=== PATIENT | female | born 1970 | race Caucasian/White ===

== ENCOUNTER 2024-10-10 00:13 | Emergency (ER) | payer MEDICAID, SELFPAY ==
--- NOTE | ~2024-10-10 | XR_ITS ---
EXAMINATION: XR CHEST CLINICAL INFORMATION: Persistent cough COMPARISON: None available. TECHNIQUE: 2 views of the chest were obtained. FINDINGS: Normal appearance of the cardiomediastinal structures. No effusions or pneumothoraces. No focal pulmonary consolidation. Normal pattern of pulmonary vasculature. Partial visualization of abdominal mesh graft suture anchors within the right abdominal quadrants. XR/XR chest 2V IMPRESSION: No cardiopulmonary abnormalities identified. Lungs clear. Partial visualization of abdominal mesh graft suture anchors within the right abdominal quadrants. Electronically signed by: Primo Jackson MD 10/10/2024 01:54 AM LYRIC GARAY
[2024-10-10 00:31] VITALS: BP 120/67; PULSE 75; RESP 20; TEMP 36.4; O2SAT 97; BMI 50.5
[2024-10-10 01:24] LABS: Influenza A PCR NEGATIVE (Negative); Influenza B PCR NEGATIVE (Negative); Resp Syncy Virus RNA Qual PCR NEGATIVE (Negative); SARS COV2 PCR INHOUSE NEGATIVE (Negative)
[2024-10-10 02:50] VITALS: BP 147/92; PULSE 80; RESP 16; TEMP 36.3; O2SAT 99
--- NOTE | 2024-10-10 03:38 | ED_ITS ---
HPI - URI/Sore Throat General Chief Complaint: Upper Respiratory Symptoms Stated Complaint: cough Time Seen by Provider: 10/10/24 03:37 Source: patient and EMS Mode of arrival: EMS Limitations: no limitations History of Present Illness ED Provider: Dr. Arianne Riddle HPI Narrative: Patient comes to the emergency room via ambulance. Initially, patient came in because she was found with her being in the street. Patient admits to polysubstance abuse. Patient denies SI or HI. Patient checked in complaining of cough and runny nose for 5 days. Related Data Allergies Allergy/AdvReac Type Severity Reaction Status Date / Time ibuprofen [From MOTRIN] Allergy Unknown FACIAL Verified 10/10/24 00:31 SWELLING Review of Systems Review of Systems: Constitutional : No Weight loss, No Fever, No Chills, No Night Sweats, No Fatigu e, No Malaise ENT/Mouth : Complaining of congestion, runny nose, no sore throat, no ear pain Eyes: No Eye Pain, No Swelling, No Redness, No Foreign Body, No Discharge, No Vision Changes Cardiovascular : No Chest Pain, No SOB, No Dyspnea on Exertion, No Orthopnea, No Edema, No Palpitations Respiratory : Complaining of cough for 5 days, No Sputum, No Wheezing, No Smoke Exposure, No Dyspnea Gastrointestinal : No Nausea, No Vomiting, No Diarrhea, No Constipation, No abdominal Pain, No Hematochezia, No Melena Genitourinary : no irregular bleeding, No Dysuria, No Urinary Frequency, No Hematuria, No Urinary Incontinence, No Urgency, No Flank Pain, No Urinary Flow Changes, No Hesitancy Musculoskeletal : No joint pain, No Myalgias, No Joint Swelling Skin : No Skin Lesions, No rash Neuro : No Weakness, No Numbness, No Paresthesias, No Loss of Consciousness, No Dizziness, No Headache Psych : No Anxiety/Panic, No Depression, No SI/HI/AH/VH, No Social Issues, Heme/Lymph: No Bruising, No Bleeding,No Lymphadenopathy Endocrine : No Polyuria, No Polydipsia, No Temperature Intolerance PMFSH Social History Social History Advance Directives: No Advance Directives Information Provided: No Do you have a plan to hurt others: No Plan Physical Exam Vital Signs: Vital Signs: Last Vital Signs Temp 97.4 F 10/10/24 02:50 Pulse 80 10/10/24 02:50 Resp 16 10/10/24 02:50 BP 147/92 H 10/10/24 02:50 Pulse Ox 99 10/10/24 02:50 O2 Del Method Room Air 10/10/24 02:50 BMI result Body Mass Index 50.5 Const: Other: Appearance: Alert. Oriented X3. No acute distress. Eyes: Pupils equal, round and reactive to light. ENT: Pharynx normal. Neck: Normal inspection. Neck supple. No lymph nodes noted. No crepitus CVS: Normal heart rate and rhythm. Pulses normal. Normal S1 and S2 Respiratory: No respiratory distress. Breath sounds normal. No Wheezing. No rales Abdomen: Soft and nontender. No rigidity. No distention. Skin: Skin warm and dry. Normal skin color. Normal skin turgor. Extremities: No lower extremity edema. No Lacerations. No Rash Neuro: Oriented X 3. No motor deficit. No sensory deficit. Moving all extremities. No slurred speech. CN 2 through 12 grossly intact Psych: calm, cooperative, normal affect Medical Decision Making Medical Decision Making MDM Narrative: My interpretation of labs: Serology negative for RSV COVID and flu -chest x-ray negative for infiltrate -patient awake, alert, clinically sober, patient ambulating by herself. -vitals are stable -patient's was here, they seem to have had a discussion in the hallway in the ED. -at this time, patient states that she feels well, admits that she drank alcohol. Patient has a normal steady gait but seems to be still under the influence. Patient able to answer questions. Discussed with the patient that it would be best until she feels a bit better. When ready, patient may be discharged -patient reassessed for SI HI, denies both Lab Data [facility] Lab Attestation statement: I reviewed the patient's lab results. Labs: Lab Results 10/10/24 Range/Units 00:39 Influenza Type A (PCR) NEGATIVE (Negative) Influenza Type B (PCR) NEGATIVE (Negative) RSV RNA Qual (PCR) NEGATIVE (Negative) SARS-CoV-2 RNA (RT-PCR) NEGATIVE (Negative) Discharge Plan Discharge Clinical Impression: Upper respiratory infection Patient Disposition: Home, Self-Care Instructions: Upper Respiratory Infection (ED) Additional Instructions: Please follow-up with your primary care physician tomorrow. If you have any worsening or new symptoms, please return to the emergency room or call 911 Print Language: Citizen Of [place]
[2024-10-10 04:05] VITALS: BP 147/92; PULSE 80; RESP 16; TEMP 36.3; O2SAT 99
== END 2024-10-10 04:10 | disposition home or self-care (01) ==
PROVIDERS: Emergency Provider Emergency Medicine
DX: J06.9 Acute upper respiratory infection, unspecified (principal); R05.9 Cough, unspecified; R09.89 Other specified symptoms and signs involving the circulatory and respiratory systems; Z03.818 Encounter for observation for suspected exposure to other biological agents ruled out
CPT/HCPCS: 0241U; 71046; 99283

== ENCOUNTER 2024-12-16 13:03 | Emergency (ER) | payer MEDICAID, SELFPAY ==
--- NOTE | ~2024-12-16 | CT_ITS ---
CLINICAL HISTORY: abdominal pain. diarrhea CT abdomen and pelvis with contrast Comparison: CT - CT ABDOMEN PELVIS W IV CON - 12/16/24 20:24 EST Findings: No consolidation or effusion. The gallbladder and solid organs are within normal limits. No renal stones. No bowel obstruction, pneumoperitoneum, or pneumatosis. Pelvic contents unremarkable. Normal appendix. No acute fracture. IMPRESSION: No acute findings. This document has been electronically signed by: Jeffry Hines MD on 12/16/2024 21:32:19
--- NOTE | 2024-12-16 13:53 | ED.GENADULT ---
HPI - General Adult General Chief complaint: Abdominal Pain Stated complaint: vomiting abd pain Time Seen by Provider: 12/16/24 18:44 Source: patient Mode of arrival: ambulatory Limitations: no limitations History of Present Illness ED Provider: Aren Ramsay PA-C HPI narrative: 54 yold female with no pmh presents to the ED for abdominal pain and mutliple rounds of diarrhea that began today. patient states so much diarrhea she had to change her clothes due to having bowel movements on her clothes. Patient denies any coughing, chest pain, shortness of breath, back pain, recent long travel, recent surgery, or any new antibiotic use. Related Data Allergies Allergy/AdvReac Type Severity Reaction Status Date / Time ibuprofen [From MOTRIN] Allergy Unknown FACIAL Verified 12/16/24 13:55 SWELLING Review of Systems Review of Systems: abdominal pain and diarrhea Yes all other systems are reviewed and are negative Physical Exam ED Vital Signs: Vital Signs - 24 hr 12/16/24 13:54 12/16/24 19:30 12/16/24 19:55 Temperature 97.6 F 98.6 F Pulse Rate 103 H 97 98 Respiratory Rate 18 16 16 Blood Pressure 139/88 123/97 H 125/95 H Pulse Oximetry 99 97 97 Oxygen Delivery Method Room Air Room Air Room Air 12/16/24 22:06 12/16/24 23:32 Temperature 96.9 F 96.9 F Pulse Rate 89 89 Respiratory Rate 16 16 Blood Pressure 110/64 110/64 Pulse Oximetry 96 96 Oxygen Delivery Method Room Air Room Air BMI result Body Mass Index 31.2 Const General: cooperative, healthy appearing, comfortable, no acute distress, well developed, alert, awake and Physically active Orientation/consciousness: patient oriented x3 HENMT Head: Yes normal to inspection, Yes No palpable skull fracture present, Yes normocephalic and Yes atraumatic Ears: hearing grossly normal bilaterally, external ears normal, TM's normal bilaterally, TM normal on the right, TM normal on the left, EAC's normal, mastoids normal and no periauricular adenopathy Eyes General: appearance normal, both eyes and all related structures Neck Neck: Yes normal visual inspection, Yes full ROM, Yes no lymphadenopathy, Yes no meningeal signs, Yes trachea midline, Yes supple, No anterior neck swelling and No tender Chest Chest palpation & inspection: normal inspection of the chest and normal palpation of entire chest wall Resp Effort & Inspection: normal respiratory effort and able to speak in complete sentences Auscultation: clear to auscultation bilaterally Cardio Jugular venous distension: no JVD Heart sounds: S1 normal heart sound present and S2 normal heart sound present GI Inspection: Yes normal to inspection Palpation (GI): Soft to palpation, not firm, Tenderness to palpation present (GI) in the LLQ and in the RLQ, no guarding and not rigid General: Yes no CVA tenderness Back/Spine/Pelvis Back: no CVA tenderness and No back tenderness Skin General skin exam: no rashes or lesions noted, elasticity normal and turgor normal Neuro General: patient oriented x3, gait normal, tone normal, moves all extremities, Normal light touch and pain sensation, no meningeal signs, no focal motor deficits, CN's II-XI intact bilaterally and normal sensation to monofilament Extrem General: Yes normal to inspection, Yes full ROM and Yes capillary refill normal Psych Appearance: grossly normal, well kempt and not disheveled Course Course Course Narrative: RME, this is a rapid medical exam performed by Ethan Shane please refer to primary provider for complete H&P- 54-year-old female presents for evaluation of abdominal pain, vomiting and diarrhea. Symptoms started this morning. She has also been sneezing. Plan for labs, viral swabs. Denies any recent antibiotic use or travel outside of the country Medications Administered Discontinued Medications Generic Name Dose Route Start Last Admin Trade Name Freq PRN Reason Stop Dose Admin Famotidine 20 mg 12/16/24 20:41 12/16/24 21:03 Famotidine/Pf 20 Mg/2 Ml Vial IVPUSH 12/16/24 20:42 20 mg ONCE ONE Administration Sodium Chloride 1,000 mls @ 999 mls/hr 12/16/24 20:27 12/16/24 22:10 Ns IV 12/16/24 21:27 Infused .Q1H1M STA Infusion Iohexol 100 ml 12/16/24 20:30 12/16/24 20:31 Iohexol 350 Mg/Ml 100 Ml Infus..Btl IV 12/16/24 20:31 85 ml ONCE ONE Administration Ondansetron HCl 4 mg 12/16/24 20:41 12/16/24 21:03 Ondansetron Hcl 4 Mg/2 Ml Vial IVPUSH 12/16/24 20:42 4 mg ONCE ONE Administration Medical Decision Making Medical Decision Making [facility] Narrative: Patient presents to ED with abdominal pain profuse diarrhea. Was sent for abdominal CT scan, stool sample C diff ordered 11:24pm: Patient de CT scan came back normal. After multiple attempts patient was not able to give stool sample. Patient also not able to give urine sample. Patient would like to be discharged with follow-up with primary care provider for outpatient stool sample UA analysis. Patient explained worrisome signs and informed to return to the ED immediately. Not suspecting sepsis, bowel perforation, small-bowel obstruction, dehydration, electrolyte deficiency, urosepsis, MS, CHF, pneumonia, or any other life-threatening etiology Differential Diagnosis Differential Diagnoses: The differential diagnosis associated with the presentation includes (Gastroenteritis, colitis, neuro) Admission/Observation Consideration of admission/observation: Escalation of care including admission/observation considered Lab Data [facility] Lab Attestation statement: I reviewed the patient's lab results. 12/16/24 14:29 12/16/24 14:29 Labs: Lab Results 12/16/24 Range/Units 14:29 WBC 13.2 H (4.8-10.8) X10*3/uL RBC 5.45 (4.20-5.50) X10*6/uL Hgb 15.1 (12.0-16.0) g/dl Hct 47.7 H (37.0-47.0) % MCV 87.5 (80.0-98.0) fL MCH 27.7 (27.0-33.0) pg MCHC 31.7 (31.0-35.0) g/dl RDW 14.1 (11.0-16.0) % Plt Count 228 (160-400) X10*3/uL MPV 10.3 (9.4-12.3) fL Immature Gran % (Auto) 0.6 H (0.0-0.4) % Neut % (Auto) 89.4 H (45-73) % Lymph % (Auto) 3.3 L (20-40) % Pratt % (Auto) 6.2 (2-11) % Eos % (Auto) 0.3 (0-4) % Baso % (Auto) 0.2 (0-2) % Lymph # (Auto) 0.4 L (1.2-4.9) X10*3/uL Pratt # (Auto) 0.8 (0.1-1.2) X10*3/uL Eos # (Auto) 0.0 (0.0-0.4) X10*3/uL Baso # (Auto) 0.0 (0.0-0.2) X10*3/uL Abs Immat Gran (auto) 0.08 H (0.00-0.03) X10*3/uL Absolute Neuts (auto) 11.8 H (2.0-8.3) x10*3/uL Absolute Nucleated RBC 0.000 (0.0-0.012) X10*3/uL Nucleated RBC % (auto) 0.0 (0.0-0.2) /100WBC Sodium 139 (135-145) mmol/L Potassium 3.9 (3.3-5.1) mmol/L Chloride 106 (96-108) mmol/L Carbon Dioxide 25 (22-29) mmol/L Anion Gap 12 (12-20) BUN 12 (9-16) mg/dL Creatinine 0.65 (0.5-1.4) mg/dL Estim Creat Clear Calc 89.0 Estimated GFR > 60 Random Glucose 123 H (60-115) mg/dL Calcium 9.5 (8.4-10.2) mg/dL Magnesium 2.0 (1.6-2.6) mg/dL Total Bilirubin 0.4 (0.0-1.0) mg/dL AST 31 (5-31) U/L ALT 24 (0-31) U/L Alkaline Phosphatase 92 (39-117) U/L Total Protein 8.9 H (6.5-8.0) g/dL Albumin 4.3 (3.5-5.0) g/dL Lipase 16 (8-78) U/L Beta HCG, Quant 3 mIU/mL Influenza Type A (PCR) NEGATIVE (Negative) Influenza Type B (PCR) NEGATIVE (Negative) RSV RNA Qual (PCR) NEGATIVE (Negative) SARS-CoV-2 RNA (RT-PCR) NEGATIVE (Negative) Independent Interpretation I performed an independent interpretation of an: CT Scan Radiology Impression Discussion of test interpretation with radiology: I have reviewed the radiologist's reading. Independent Historian Clinical information obtained from an independent historian. History obtained from or confirmed by: Other (Patient) Discharge Plan Discharge Clinical Impression: Gastroenteritis Patient Disposition: Home, Self-Care Instructions: Gastroenteritis (ED) Additional Instructions: Recommend follow-up with your primary care provider so you can give stool sample and also urine sample so they can be tested. Return to the ED immediately for blood in stool, weakness, dizziness, severe abdominal pain, inability tolerate solid food/liquid, fever, chills, dysuria, hematuria, or any other concerning symptoms. CT abdomen and pelvis with contrast Comparison: CT - CT ABDOMEN PELVIS W IV CON - 12/16/24 20:24 EST Findings: No consolidation or effusion. The gallbladder and solid organs are within normal limits. No renal stones. No bowel obstruction, pneumoperitoneum, or pneumatosis. Pelvic contents unremarkable. Normal appendix. No acute fracture. IMPRESSION: No acute findings. This document has been electronically signed by: Jeffry Hines MD on 12/16/2024 21:32:19 Dictated By: Jeffry Hines MD Signed By: <Electronically signed by Jeffry Hines MD in OV> 12/16/242132 DD/ 31 TD/TT: 12/16/242131 Tail Dogger: Stand Alone Forms: Work/School Release Interventions: ED Discharge Assessment Last Done: 12/16/24 23:32 Discharge Date/Time: 12/16/24 23:33 Print Language: French
[2024-12-16 13:54] VITALS: BP 139/88; PULSE 103; RESP 18; TEMP 36.4; O2SAT 99; BMI 31.2
[2024-12-16 14:35] LABS: MANUAL DIFF FLAG NO
[2024-12-16 14:37] LABS: Basophils Percent Auto 0.2 % (0-2); Eosinophils Percent Auto 0.3 % (0-4); Hematocrit 47.7 % (37.0-47.0); Hemoglobin 15.1 g/dl (12.0-16.0); Imm Gran Abs Auto 0.08 X10*3/uL (0.00-0.03); Imm Gran Pct Auto 0.6 % (0.0-0.4); Lymphocytes Absolute Auto 0.4 X10*3/uL (1.2-4.9); Lymphocytes Percent Auto 3.3 % (20-40); Mean Corpuscular HGB Conc 31.7 g/dl (31.0-35.0); Mean Corpuscular Hemoglobin 27.7 pg (27.0-33.0); Mean Corpuscular Volume 87.5 fL (80.0-98.0); Mean Platelet Volume 10.3 fL (9.4-12.3); Monocytes Absolute Auto 0.8 X10*3/uL (0.1-1.2); Monocytes Percent Auto 6.2 % (2-11); Neutrophils Absolute Auto 11.8 x10*3/uL (2.0-8.3); Neutrophils Percent Auto 89.4 % (45-73); Platelet Count 228 X10*3/uL (160-400); Red Blood Count 5.45 X10*6/uL (4.20-5.50); Red Cell Distribution Width 14.1 % (11.0-16.0); White Blood Count 13.2 X10*3/uL (4.8-10.8)
[2024-12-16 14:53] LABS: Alanine Aminotransferase 24 U/L (0-31); Albumin Level 4.3 g/dL (3.5-5.0); Alkaline Phosphatase 92 U/L (39-117); Anion Gap 12 (12-20); Aspartate Amino Transferase 31 U/L (5-31); Bilirubin Total 0.4 mg/dL (0.0-1.0); Blood Urea Nitrogen 12 mg/dL (9-16); Calcium 9.5 mg/dL (8.4-10.2); Carbon Dioxide 25 mmol/L (22-29); Chloride 106 mmol/L (96-108); Estimated Glomerular Filt Rate > 60; Glucose Random 123 mg/dL (60-115); Lipase 16 U/L (8-78); Potassium 3.9 mmol/L (3.3-5.1); Sodium 139 mmol/L (135-145); Total Protein 8.9 g/dL (6.5-8.0)
[2024-12-16 15:13] LABS: Influenza A PCR NEGATIVE (Negative); Influenza B PCR NEGATIVE (Negative); Resp Syncy Virus RNA Qual PCR NEGATIVE (Negative); SARS COV2 PCR INHOUSE NEGATIVE (Negative)
[2024-12-16 19:08] LABS: HCG Quantitative 3 mIU/mL
[2024-12-16 19:30] VITALS: BP 123/97; PULSE 97; RESP 16; O2SAT 97
[2024-12-16 19:55] VITALS: BP 125/95; PULSE 98; RESP 16; TEMP 37; O2SAT 97
[2024-12-16] MEDS: iohexoL 350 MG/ML 100 ML INFUS..BTL IV (20:31)
[2024-12-16] MEDS: 0.9 % Sodium Chloride 1,000 ML 999 ML IV (20:35)
[2024-12-16] MEDS: Famotidine/PF 20 MG/2 ML VIAL IVPUSH (21:03)
[2024-12-16] MEDS: ondansetron HCL 4 MG/2 ML VIAL IVPUSH (21:03)
[2024-12-16 22:06] VITALS: BP 110/64; PULSE 89; RESP 16; TEMP 36.1; O2SAT 96
[2024-12-16 23:32] VITALS: BP 110/64; PULSE 89; RESP 16; TEMP 36.1; O2SAT 96
== END 2024-12-16 23:33 | disposition home or self-care (01) ==
PROVIDERS: Physician Assistant; Emergency Provider Emergency Medicine Emergency Medical Services
DX: K52.9 Noninfective gastroenteritis and colitis, unspecified (principal); R10.9 Unspecified abdominal pain; R11.10 Vomiting, unspecified; Z03.818 Encounter for observation for suspected exposure to other biological agents ruled out
CPT/HCPCS: 0241U; 74177; 80053; 83690; 83735; 84702; 85025; 96361; 96374; 96375; 99284; J2405; Q9967

== ENCOUNTER → 2024-12-16 19:02 | Outpatient (BNV) | payer MEDICAID, SELFPAY | PROVIDERS: Emergency Provider Emergency Medicine Emergency Medical Services; Visit Provider Student in an Organized Health Care Education/Training Program | DX: R10.9 Unspecified abdominal pain (principal); R19.7 Diarrhea, unspecified | CPT/HCPCS: 74177 ==

== ENCOUNTER 2025-06-16 01:17 | Emergency (ER) | payer MEDICAID, SELFPAY ==
--- NOTE | 2025-06-16 | ECG_ITS ---
Test Reason : ALTERED MENTAL STATUS Blood Pressure : */* mmHG Vent. Rate : 86 BPM Atrial Rate : 86 BPM P-R Int : 156 ms QRS Dur : 74 ms QT Int : 376 ms P-R-T Axes : 56 25 16 degrees QTcB Int : 449 ms Normal sinus rhythm Normal ECG No previous ECGs available Referred By: Generic ED Physician Electronically Signed By: Drew Pruett
--- NOTE | ~2025-06-16 | CT_ITS ---
EXAMINATION: CT HEAD WITHOUT CONTRAST CLINICAL INFORMATION: altered mentation COMPARISON: None available. TECHNIQUE: Contiguous axial imaging was performed from the skull base to vertex without intravenous administration of contrast. This CT examination was performed using dose optimization techniques as appropriate, variously including the following: *Automated exposure control *Adjustment of mA and/or kV according to patient size (this includes techniques or standardized protocols for targeted exams where dose is matched to indication/reason for exam; i.e. extremities or head) *Use of iterative reconstruction technique DLP: 540 mGy-cm FINDINGS: Limited by motion artifact. No acute intracranial hemorrhage, mass effect, midline shift, hydrocephalus or herniation. Bilateral multifocal patchy deep periventricular white matter hypodensity. Velazquez-white matter differentiation is normal. Prominence of the extra-axial CSF spaces cerebral sulci and ventricles. Posterior cranial fossa contents demonstrated no gross hemorrhage or mass effect. Craniocervical junction demonstrates normal position of the cerebellar tonsils. Sellar/suprasellar region demonstrated no gross masses. Calcified plaques in the cavernous segments both ICAs. No acute fracture in the bony calvarium. No gross air-fluid levels in the paranasal sinuses. Poor pneumatization of the frontal sinuses. Tympanic cavities and mastoid cells are aerated. CT/CT head/brain wo IV con IMPRESSION: No acute intracranial hemorrhage. Small vessel occlusive disease. Global cerebral atrophy. Electronically signed by: Chester Brand MD 06/16/2025 10:19 AM EDT
[2025-06-16 01:36] VITALS: BP 138/72; BP 149/88; PULSE 97; PULSE 99; RESP 16; TEMP 36.9; O2SAT 98; O2SAT 99; BMI 52.0
[2025-06-16 02:06] VITALS: BP 149/88; PULSE 82; RESP 19; TEMP 36.9; O2SAT 98
[2025-06-16 02:13] LABS: MANUAL DIFF FLAG NO
[2025-06-16 02:14] LABS: Hematocrit 37.3 % (37.0-47.0); Hemoglobin 12.5 g/dl (12.0-16.0); Imm Gran Abs Auto 0.06 X10*3/uL (0.00-0.03); Imm Gran Pct Auto 0.4 % (0.0-0.4); Lymphocytes Absolute Auto 1.6 X10*3/uL (1.2-4.9); Mean Corpuscular HGB Conc 33.5 g/dl (31.0-35.0); Mean Corpuscular Hemoglobin 28.2 pg (27.0-33.0); Mean Corpuscular Volume 84.0 fL (80.0-98.0); NRBC Abs Auto 0.000 X10*3/uL (0.0-0.012); NRBC Pct Auto 0.0 /100WBC (0.0-0.2); Platelet Count 259 X10*3/uL (160-400); Red Blood Count 4.44 X10*6/uL (4.20-5.50); White Blood Count 13.7 X10*3/uL (4.8-10.8)
[2025-06-16 02:22] LABS: Ammonia 31 umol/L (13-55)
[2025-06-16 02:33] LABS: Anion Gap 13 (12-20); Blood Urea Nitrogen 19 mg/dL (9-16); Calcium 8.9 mg/dL (8.4-10.2); Carbon Dioxide 25 mmol/L (22-29); Chloride 110 mmol/L (96-108); Creatinine Clr Calc Pharmacy 71.3; Estimated Glomerular Filt Rate > 60; Potassium 3.5 mmol/L (3.3-5.1); Sodium 144 mmol/L (135-145)
--- NOTE | 2025-06-16 02:52 | MHC.EDTECH ---
patients belongings in [facility] shelf 3
[2025-06-16 04:58] LABS: Appearance Urine Clear; Glucose Urine UA Negative (Negative); PH 5.5 (5.0-9.0); Specific Gravity - Urine 1.025 (1.005-1.025); UMIC TRIGGER UA YES
[2025-06-16 05:09] LABS: Cannabinoid Screen Urine Not Detected (Not Detect)
[2025-06-16 06:22] VITALS: BP 115/66; PULSE 70; RESP 14; TEMP 36.9; O2SAT 95
--- NOTE | 2025-06-16 07:45 | ED_ITS ---
HPI - General Adult General Chief complaint: Psychiatric Symptoms Stated complaint: AMS dementia escaped home x3 Time Seen by Provider: 06/16/25 07:32 Source: family (Erika,Gabe) and EMS Mode of arrival: EMS Limitations: altered mental status History of Present Illness ED Provider: HPI narrative: I spoke to patient's son, patient herself is a limited historian whether from recent intoxication or another organic brain disease or other causes, but son reports that she drinks quite a lot, was not sure whether she uses drugs, but he told me that she has no history of dementia as this was documented in the chart or that she has escaped from home, he states that they were in a [employer] shopping and then she left them in the store, patient is not really able to contribute to what happened she is sitting up and answering questions but is a limited historian at this time. Her son is interested in outpatient rehab resources and he will be able to take her home afterwards. He states she has been both inpatient and outpatient rehab in the past Related Data Allergies Allergy/AdvReac Type Severity Reaction Status Date / Time ibuprofen (From MOTRIN) Allergy Unknown FACIAL Verified 06/16/25 01:48 SWELLING Review of Systems 2 Constitutional: Constitutional: Reports as per HPI [facility] Social History Social History Smoked in Last 30 Days: No Use of substances other than those prescribed or required for medical reasons: No Advance Directives: No Advance Directives Information Provided: Yes Physical Exam ED Vital Signs: Vital Signs - 24 hr 06/16/25 01:36 06/16/25 02:06 06/16/25 06:22 Temperature 98.5 F 98.5 F 98.4 F Pulse Rate 99 82 70 Respiratory Rate 16 19 14 Blood Pressure 149/88 H 149/88 H 115/66 Pulse Oximetry 98 98 95 Oxygen Delivery Method Room Air Room Air Room Air 06/16/25 09:45 06/16/25 12:32 Temperature 97.7 F Pulse Rate 79 80 Respiratory Rate 15 20 Blood Pressure 126/73 158/103 H Pulse Oximetry 96 98 Oxygen Delivery Method Room Air BMI result Body Mass Index 52.0 Const Other: * Gen: ?No obvious facial trauma * HEENT: Pupils reactive 3 mm, no scleral icterus * Neck: Supple, no LAD * CV: RRR, no obvious murmurs appreciated * Resp: ?No wheezing rales rhonchi no stridor moving air well * Abd: ?Bowel sounds are present, no tenderness no rebound no rigidity * MSK: FROM, strength 5/5 all extremities * Skin: No bruising, no jaundice * Neuro: ?Alert to self, and location but otherwise poor historian, moving upper and lower extremities symmetrically, no obvious facial asymmetry noted Medical Decision Making Medical Decision Making MDM Narrative: Patient did test positive for cocaine, but otherwise limited historian, I spoke to her son over the phone and he denies that she has history of dementia as documented, we will obtain CT of the brain just to make sure there is no underlying stroke or bleed or anything else that could be causing her presentation but otherwise her workup has been reassuring 12:21 patient is really not able to participate with addiction team, I called back her son and we will speak to him in person, CT negative for acute injuries 12:35 I spoke to patient's son, I told him that patient is not really able to engage with care team, and not to give her money because once she had money she went out to buy drugs, otherwise she is at her baseline and I will be discharging her into his care Differential Diagnosis Differential Diagnoses: The differential diagnosis associated with the presentation includes Traumatic brain injury, dementia, stroke, intoxication, Wernicke's encephalitis Admission/Observation 2022 Emergency Medicine Coding Guide from [employer] on 06/16/2025 All calculations should be rechecked by clinician prior to use RESULT SUMMARY: 4 Estimated Level of Service Problems: Moderate (4) Risk: Moderate (4) Data: Extensive (5) NARRATIVE MDM: This patient's problem complexity is Moderate as patient: with chronic illness(es) with exacerbation/progression/side effects of treatment. This patient's risk is Moderate due to: overall presentation requiring evaluation for a potentially Moderate-risk process. This patient's data complexity is Extensive due to: -multiple tests ordered -independent historian used to support history -independent interpretation of imaging or EKG INPUTS: Number and Complexity ?> 3 = 4: chronic illness with exacerbation (c) Risk level ?> 3 = Moderate Tests ordered ?> 2 = 2 Tests results reviewed (excluding labs) ?> 1 = 1 Prior external notes reviewed ?> 0 = 0 Assessment requiring and independent historian ?> 1 = Yes Independent interpretation of tests ?> 1 = Yes Discussed management/test interpretation w/external professional ?> 0 = No Lab Data MDM Lab Attestation statement: I reviewed the patient's lab results. 06/16/25 02:07 06/16/25 02:07 Labs: Lab Results 06/16/25 06/16/25 06/16/25 Range/Units 02:07 04:51 07:37 WBC 13.7 H (4.8-10.8) X10*3/uL RBC 4.44 (4.20-5.50) X10*6/uL Hgb 12.5 (12.0-16.0) g/dl Hct 37.3 D (37.0-47.0) % MCV 84.0 (80.0-98.0) fL MCH 28.2 (27.0-33.0) pg MCHC 33.5 (31.0-35.0) g/dl RDW 14.5 (11.0-16.0) % Plt Count 259 (160-400) X10*3/uL MPV 10.2 (9.4-12.3) fL Immature Gran % (Auto) 0.4 (0.0-0.4) % Neut % (Auto) 80.2 H (45-73) % Lymph % (Auto) 11.7 L (20-40) % Stephens % (Auto) 7.1 (2-11) % Eos % (Auto) 0.3 (0-4) % Baso % (Auto) 0.3 (0-2) % Lymph # (Auto) 1.6 (1.2-4.9) X10*3/uL Stephens # (Auto) 1.0 (0.1-1.2) X10*3/uL Eos # (Auto) 0.0 (0.0-0.4) X10*3/uL Baso # (Auto) 0.0 (0.0-0.2) X10*3/uL Abs Immat Gran (auto) 0.06 H (0.00-0.03) X10*3/uL Absolute Neuts (auto) 11.0 H (2.0-8.3) x10*3/uL Absolute Nucleated RBC 0.000 (0.0-0.012) X10*3/uL Nucleated RBC % (auto) 0.0 (0.0-0.2) /100WBC Sodium 144 (135-145) mmol/L Potassium 3.5 (3.3-5.1) mmol/L Chloride 110 H (96-108) mmol/L Carbon Dioxide 25 (22-29) mmol/L Anion Gap 13 (12-20) BUN 19 H (9-16) mg/dL Creatinine 0.67 (0.5-1.4) mg/dL Estim Creat Clear Calc 71.3 Estimated GFR > 60 Random Glucose 131 H (60-115) mg/dL Calcium 8.9 D (8.4-10.2) mg/dL Ammonia 31 (13-55) umol/L Urine Color Yellow Urine Appearance Clear Urine pH 5.5 (5.0-9.0) Ur Specific [place] 1.025 (1.005-1.025) Urine Protein 30 (1+) H (Neg-Trace) mg/dL Urine Glucose (UA) Negative (Negative) mg/dL Urine Ketones 15 (Negative) mg/dL Urine Blood Trace H (Negative) Urine Nitrite Negative (Negative) Ur Leukocyte Esterase Small (1+) H (Negative) Urine RBC 0-2 (0-2) /HPF Urine WBC 11-20 H (0-5) /HPF Ur Squamous Epith Cells 6-10 (0-2) /HPF Urine Bacteria Trace (None Seen) Hyaline Casts 0-2 (0-2) /LPF Urine Opiates Screen Not Detected (Not Detect) Ur Buprenorphine Scrn Not Detected (Not Detect) ng/mL Ur Oxycodone Screen Not Detected (Not Detect) ng/mL Urine Methadone Screen Not Detected (Not Detect) ng/mL Urine Fentanyl Screen Not Detected (Not Detect) Ur Barbiturates Screen Not Detected (Not Detect) Ur Phencyclidine Scrn Not Detected (Not Detect) Ur Amphetamines Screen Not Detected (Not Detect) U Benzodiazepines Scrn Not Detected (Not Detect) Urine Cocaine Screen POSITIVE H (Not Detect) U Marijuana (THC) Screen Not Detected (Not Detect) Ethyl Alcohol < 10 mg/dL Influenza Type A (PCR) NEGATIVE (Negative) Influenza Type B (PCR) NEGATIVE (Negative) RSV RNA Qual (PCR) NEGATIVE (Negative) SARS-CoV-2 RNA (RT-PCR) NEGATIVE (Negative) Radiology Impression Discussion of test interpretation with radiology: I have reviewed the radiologist's reading. ( CT/CT head/brain wo IV con IMPRESSION: No acute intracranial hemorrhage. Small vessel occlusive disease. 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 I did try to involve addiction team to speak with her but she is really not able to engage with the team, primarily she needs to be monitored at home and make sure she has no access to alcohol or drugs or money. Interventions: [place]-Suicide Risk Severity Scale Last Done: 06/16/25 02:04 Print Language: Khmer
[2025-06-16 08:25] LABS: Resp Syncy Virus RNA Qual PCR NEGATIVE (Negative); SARS COV2 PCR INHOUSE NEGATIVE (Negative)
[2025-06-16 09:45] VITALS: BP 126/73; PULSE 79; RESP 15; O2SAT 96
--- NOTE | 2025-06-16 09:51 | PC.NURSE ---
Addendum entered by Brannon Chavez RN 06/16/25 09:53: Pt denies SI/Hi at this time. Sitter at bedside. Original Note: 55 F presents to ED with confusion, unknown baseline. Pt has no complaints at this time, just very confused, knows her name but does not know her birthday. Pt answering some questions. RR even and unlabored, denies SOB. Lung sounds clear bilat.
--- NOTE | 2025-06-16 10:44 | MHC.CARE ---
CARE Team unable to evaluate patient, she is too confused and unable to engaged. Left message for son/emergency contact for collateral information.
[2025-06-16 12:32] VITALS: BP 158/103; PULSE 80; RESP 20; TEMP 36.5; O2SAT 98
[2025-06-16 13:29] VITALS: BP 128/73; PULSE 72; RESP 18; TEMP -17.7; TEMP 0; O2SAT 97
== END 2025-06-16 13:35 | disposition home or self-care (01) ==
PROVIDERS: Emergency Provider Emergency Medicine; PCP Dentist General Practice
DX: F14.159 Cocaine abuse with cocaine-induced psychotic disorder, unspecified (principal); F03.90 Unspecified dementia, unspecified severity, without behavioral disturbance, psychotic disturbance, mood disturbance, and anxiety; Z79.899 Other long term (current) drug therapy
CPT/HCPCS: 36415; 70450; 80048; 80307; 81001; 82140; 85025; 87086; 87637; 93005; 99284; 99285

== ENCOUNTER → 2025-06-16 01:51 | Outpatient (BNV) | payer MEDICAID, SELFPAY | PROVIDERS: Emergency Provider Emergency Medicine; PCP Dentist General Practice; Visit Provider Internal Medicine Cardiovascular Disease | DX: R41.82 Altered mental status, unspecified (principal) | CPT/HCPCS: 93010 ==

== ENCOUNTER → 2025-06-16 07:44 | Outpatient (BNV) | payer MEDICAID, SELFPAY | PROVIDERS: Emergency Provider Emergency Medicine; PCP Dentist General Practice; Visit Provider Radiology Diagnostic Radiology | DX: R41.82 Altered mental status, unspecified (principal) | CPT/HCPCS: 70450 ==